=== PATIENT | male | born 1985 | race African-American/Black ===

== ENCOUNTER 2024-07-02 09:05 | Inpatient (IN) | payer OTHER ==
[2024-07-02 09:36] VITALS: BMI 21.0
[2024-07-02] MEDS ORDERED: NALOXONE (NARCAN) HCL 4 MG/0.1 ML SPRAY NS PRN (10:26)
[2024-07-02] MEDS ORDERED: LOPERAMIDE HCL 2 MG CAPSULE PO PRN (10:26)
[2024-07-02] MEDS ORDERED: BENZONATATE 200 MG CAPSULE PO PRN (10:26)
[2024-07-02] MEDS ORDERED: MAG HYDROX/AL HYDROX/SIMETH 30 ML UNIT-DOSE CUP PO PRN (10:26)
[2024-07-02] MEDS ORDERED: BENZOCAINE/MENTHOL (CHLORASEPTIC ) LOZENGE MM PRN (10:26)
[2024-07-02] MEDS ORDERED: MAGNESIUM HYDROX 2400MG/30ML ORAL SUSPENSION 30 ML CUP PO PRN (10:26)
[2024-07-02] MEDS ORDERED: BISMUTH SUBSALICYLATE 262 MG/15 ML BTL PO PRN (10:26)
[2024-07-02] MEDS ORDERED: DICYCLOMINE HCL 10 MG CAPSULE PO PRN (10:26)
[2024-07-02] MEDS ORDERED: POLYETHYLENE GLYCOL (HEALTHYLAX) 3350 17 GM PACKET PO PRN (10:26)
[2024-07-02] MEDS ORDERED: ONDANSETRON *ODT* 4 MG TABLET SL PRN (10:26)
[2024-07-02] MEDS ORDERED: METHOCARBAMOL 500 MG TABLET PO PRN (10:26)
[2024-07-02] MEDS ORDERED: IBUPROFEN 400 MG TABLET (FP) PO PRN (10:26)
[2024-07-02] MEDS ORDERED: ACETAMINOPHEN 325 MG TABLET (FP) PO PRN (10:26)
[2024-07-02] MEDS ORDERED: IBUPROFEN 600 MG TABLET (FP) PO PRN (10:26)
[2024-07-02] MEDS: hydrOXYzine PAMOATE 25 MG CAPSULE (FP) PO PRN (11:35)
[2024-07-02] MEDS ORDERED: hydrOXYzine PAMOATE 25 MG CAPSULE (FP) PO ONE (11:43)
[2024-07-02] MEDS: THIAMINE 100 MG TABLET PO SCH (22:29)
[2024-07-02] MEDS: MELATONIN 5 MG TABLETS PO SCH (22:29)
[2024-07-03] MEDS: PRENATAL VITAMINS W/ FOLIC ACID TABLET (FP) PO SCH (10:23)
[2024-07-03] MEDS: NALTREXONE HCL 50 MG TABLET PO ONE (10:23)
[2024-07-03 11:41] LABS: HEMATOCRIT 35.7 % (35.4-49); HEMOGLOBIN 11.7 GM/dL (11.7-16.9); MCH 31.3 pg (25.7-33.7); MCHC 32.9 g/dl (32.0-35.9); MEAN CELL VOLUME 95.2 fl (80-96); MEAN PLT VOLUME 8.9 fl (7.5-11.1); PLATELET COUNT 246 10^3/uL (134-434); RBC 3.75 M/mm3 (4.00-5.60); RDW 13.4 % (11.9-15.9); WHITE BLOOD COUNT 6.4 K/mm3 (4.0-10.0)
[2024-07-03 11:57] LABS: POTASSIUM 4.4 mmol/L (3.5-5.1)
[2024-07-03 12:01] LABS: BLOOD UREA NITROGEN 15.2 mg/dL (7-18); CALCIUM 9.7 mg/dL (8.5-10.1)
[2024-07-03 12:02] LABS: ALBUMIN 4.1 g/dl (3.4-5.0)
[2024-07-03 12:05] LABS: CREATININE 0.8 mg/dL (0.55-1.3)
[2024-07-03 12:07] LABS: TOT PROT 7.8 g/dl (6.4-8.2)
[2024-07-03] MEDS: ARIPiprazole 10 MG TABLET PO SCH (12:36)
[2024-07-04 06:43] VITALS: RESP 16
[2024-07-04 08:54] VITALS: BP 110/64; PULSE 82; TEMP 98.4
[2024-07-04] MEDS: NALTREXONE HCL 50 MG TABLET PO SCH (09:52)
[2024-07-04] MEDS: guaiFENesin 600 MG TABLET.ER (FP) PO PRN (09:56)
== END 2024-07-04 13:00 | disposition other institution (70) | DRG 774 ==
LOC: YASAS 09:05 → Y6N 11:38
PROVIDERS: ADMIT Allergy & Immunology; ATTEND Allergy & Immunology
PROC: HZ2ZZZZ Detoxification Services for Substance Abuse Treatment (ICD-10-PCS; principal; 2024-07-02)
DX: F14.20 Cocaine dependence, uncomplicated (principal); F10.20 Alcohol dependence, uncomplicated; F19.259 Other psychoactive substance dependence with psychoactive substance-induced psychotic disorder, unspecified; Z91.51 Personal history of suicidal behavior; Z59.00 Homelessness unspecified
CPT/HCPCS: 36415; 80053; 80305; 80307; 85027; 86780; 87811; 93005; 93010

== ENCOUNTER 2024-07-04 12:47 | Inpatient (IN) | payer OTHER ==
[2024-07-04] MEDS ORDERED: IBUPROFEN 400 MG TABLET (FP) PO PRN (14:16)
[2024-07-04] MEDS ORDERED: LOPERAMIDE HCL 2 MG CAPSULE PO PRN (14:16)
[2024-07-04] MEDS ORDERED: MAGNESIUM HYDROX 2400MG/30ML ORAL SUSPENSION 30 ML CUP PO PRN (14:16)
[2024-07-04] MEDS ORDERED: IBUPROFEN 600 MG TABLET (FP) PO PRN (14:16)
[2024-07-04] MEDS ORDERED: METHOCARBAMOL 500 MG TABLET PO PRN (14:16)
[2024-07-04] MEDS ORDERED: MAG HYDROX/AL HYDROX/SIMETH 30 ML UNIT-DOSE CUP PO PRN (14:16)
[2024-07-04] MEDS ORDERED: NALOXONE (NARCAN) HCL 4 MG/0.1 ML SPRAY NS PRN (14:16)
[2024-07-04] MEDS ORDERED: hydrOXYzine PAMOATE 25 MG CAPSULE (FP) PO PRN (14:16)
[2024-07-04] MEDS ORDERED: NALOXONE HCL 0.4 MG/ML VIAL IVPUSH PRN (14:16)
[2024-07-04] MEDS ORDERED: BENZOCAINE/MENTHOL (CHLORASEPTIC ) LOZENGE MM PRN (14:16)
[2024-07-04] MEDS ORDERED: ACETAMINOPHEN 325 MG TABLET (FP) PO PRN (14:16)
[2024-07-04] MEDS ORDERED: POLYETHYLENE GLYCOL (HEALTHYLAX) 3350 17 GM PACKET PO PRN (14:16)
[2024-07-04] MEDS ORDERED: guaiFENesin 600 MG TABLET.ER (FP) PO PRN (14:16)
[2024-07-04] MEDS ORDERED: BENZONATATE 200 MG CAPSULE PO PRN (14:16)
[2024-07-04] MEDS: ARIPiprazole 10 MG TABLET PO SCH (22:21)
[2024-07-04] MEDS: MELATONIN 5 MG TABLETS PO SCH (22:21)
[2024-07-04] MEDS: THIAMINE 100 MG TABLET PO SCH (22:22)
[2024-07-05 06:37] VITALS: BP 117/67; PULSE 69; RESP 20; TEMP 97.9
[2024-07-05] MEDS ORDERED: PRENATAL VITAMINS W/ FOLIC ACID TABLET (FP) PO SCH (10:00)
== END 2024-07-05 08:58 | disposition left against medical advice (07) | DRG 770 ==
LOC: YASAS 12:47 → Y3E 12:48
PROVIDERS: ADMIT Psychiatry & Neurology Pain Medicine; ATTEND Psychiatry & Neurology Pain Medicine
PROC: HZ42ZZZ Group Counseling for Substance Abuse Treatment, Cognitive-Behavioral (ICD-10-PCS; principal; 2024-07-04)
DX: F14.20 Cocaine dependence, uncomplicated (principal); F19.259 Other psychoactive substance dependence with psychoactive substance-induced psychotic disorder, unspecified

== ENCOUNTER 2024-08-29 12:22 | Inpatient (IN) | payer OTHER ==
[2024-08-29 12:46] VITALS: BMI 20.2
[2024-08-29] MEDS ORDERED: IBUPROFEN 600 MG TABLET (FP) PO PRN (13:08)
[2024-08-29] MEDS ORDERED: ACETAMINOPHEN 325 MG TABLET (FP) PO PRN (13:08)
[2024-08-29] MEDS ORDERED: NALOXONE (NARCAN) HCL 4 MG/0.1 ML SPRAY NS PRN (13:08)
[2024-08-29] MEDS ORDERED: IBUPROFEN 400 MG TABLET (FP) PO PRN (13:08)
[2024-08-29] MEDS ORDERED: POLYETHYLENE GLYCOL (HEALTHYLAX) 3350 17 GM PACKET PO PRN (13:08)
[2024-08-29] MEDS ORDERED: LOPERAMIDE HCL 2 MG CAPSULE PO PRN (13:08)
[2024-08-29] MEDS ORDERED: MAG HYDROX/AL HYDROX/SIMETH 30 ML UNIT-DOSE CUP PO PRN (13:08)
[2024-08-29] MEDS ORDERED: hydrOXYzine PAMOATE 25 MG CAPSULE (FP) PO PRN (13:08)
[2024-08-29] MEDS ORDERED: MAGNESIUM HYDROX 2400MG/30ML ORAL SUSPENSION 30 ML CUP PO PRN (13:08)
[2024-08-29] MEDS: THIAMINE 100 MG TABLET PO SCH (22:20)
[2024-08-29] MEDS: MELATONIN 5 MG TABLETS PO SCH (22:20)
[2024-08-30] MEDS: guaiFENesin 600 MG TABLET.ER (FP) PO PRN (01:42)
[2024-08-30] MEDS: BENZONATATE 200 MG CAPSULE PO PRN (01:42)
[2024-08-30] MEDS: BENZOCAINE/MENTHOL (CHLORASEPTIC ) LOZENGE MM PRN (01:44)
[2024-08-30] MEDS: PRENATAL VITAMINS W/ FOLIC ACID TABLET (FP) PO SCH (10:37)
[2024-08-30 10:52] VITALS: BP 125/78; PULSE 88; RESP 18; TEMP 98.2
[2024-08-30 11:13] LABS: HEMATOCRIT 43.1 % (40.1-51.0); HEMOGLOBIN 13.2 g/dL (13.7-17.5); MCHC 30.6 g/dl (32.3-36.5); MEAN CELL VOLUME 99.3 fl (79.0-92.2); MEAN PLT VOLUME 11.2 fl (9.4-12.4); PLATELET COUNT 258 x10^3/uL (163-337); RDW 12.3 % (12.0-15.6)
[2024-08-30 11:20] LABS: POTASSIUM 4.8 mmol/L (3.5-5.1)
[2024-08-30 11:44] LABS: BLOOD UREA NITROGEN 5.4 mg/dL (7-18)
[2024-08-30 11:45] LABS: CALCIUM 10.1 mg/dL (8.5-10.1)
[2024-08-30 11:47] LABS: CREATININE 0.9 mg/dL (0.55-1.3)
[2024-08-30 11:50] LABS: BILIRUBIN,TOTAL 1.3 mg/dL (0.2-1); TOT PROT 7.2 g/dl (6.4-8.2)
[2024-08-30 12:56] LABS: SYPHILIS W/ RPR CONF NON-REACTIVE (NONREACTIVE)
[2024-08-30 13:25] LABS: HCV DIAGNOSTIC IN-HOUSE W/RFLX NON-REACTIVE (NONREACTIVE)
== END 2024-08-31 10:21 | disposition left against medical advice (07) | DRG 770 ==
LOC: YASAS 12:22 → Y3NR 15:25 → Y3E 08-30 09:58
PROVIDERS: ADMIT Allergy & Immunology; ATTEND Allergy & Immunology
PROC: HZ42ZZZ Group Counseling for Substance Abuse Treatment, Cognitive-Behavioral (ICD-10-PCS; principal; 2024-08-29)
DX: F14.20 Cocaine dependence, uncomplicated (principal); F12.20 Cannabis dependence, uncomplicated; F25.9 Schizoaffective disorder, unspecified; F19.259 Other psychoactive substance dependence with psychoactive substance-induced psychotic disorder, unspecified; Z87.891 Personal history of nicotine dependence
CPT/HCPCS: 36415; 80053; 80305; 80307; 85027; 86780; 86803; 87811; 93005; 93010